=== PATIENT | female | born 1990 | race Two or more races ===

== ENCOUNTER 2021-09-10 18:11 | Emergency (ER) | payer OTHER ==
[~2021-09-10] VITALS: Ht 165.1 cm; Wt 68.2 kg
[2021-09-10 18:42] VITALS: BP 132/88
[2021-09-10] MEDS ORDERED: AMOX TR/POT CLAV 875 MG/125 MG TABLET PO ONE (20:15)
[2021-09-10] MEDS ORDERED: BACITRACIN 0.9 GM PACKET OINTMENT TP ONE (20:15)
== END 2021-09-10 22:35 ==
LOC: EMS 18:11 → EDBD 18:11 → EMS 22:35
DX: T81.41XA Infection following a procedure, superficial incisional surgical site, initial encounter (principal); I10 Essential (primary) hypertension; F32.9 Major depressive disorder, single episode, unspecified; Y83.8 Other surgical procedures as the cause of abnormal reaction of the patient, or of later complication, without mention of misadventure at the time of the procedure; Y92.89 Other specified places as the place of occurrence of the external cause
CPT/HCPCS: 99283